=== PATIENT | male | born 1950 | race Caucasian/White ===

== ENCOUNTER → 2019-03-05 | Outpatient (CLI) | payer MEDICARE ==
[~2019-03-05] VITALS: Ht 185.4 cm; Wt 133.8 kg
[~2019-03-05] MED LIST: ASPIRIN81 M2 PO; CARAFATE 1 GM TA1 G1 PO; COLACE100 MG PO; COZAAR 25 MG TA25 M1 PO; FISH OIL 1,0001 EAC9 PO; FLOMAX0.4 MG PO; FOLIC ACID0.8 MG PO; HYDROCODON-ACE1 EAC7 PO; HYDROCODON-ACE1 EACH PO; HYDROCODONE-AP1 EAC6 PO; HYDROCODONE-APA1 TA1 PO; LASIX 20 MG TAB20 MG PO; LODINE XL500 MG PO; LOPRESSOR50 PO; LYRICA 50 MG50 MG PO; MIRALAX17 GM PO; MULTI-VITAMIN1 EAC5 PO; NEURONTIN 300300 M1 PO; NEURONTIN600 MG PO; NITROSTAT0.6 MG SL; POTASSIUM20 PO; SIMVASTATIN40 MG PO; SYMBICORT160 MCG/4. INH; VITAMIN C125 MG PO; gabapentin PO
[2019-03-05 12:51] VITALS: BP 133/96
--- NOTE | 2019-03-05 13:15 | NUR ---
Pain Clinic Assessment: 1. History of Osteoarthritis: Left Lower Extremity Left Upper Extremity Right Lower Extremity Right Upper Extremity History of Rheumatoid Arthritis: Not Applicable 2. Height: 6 ft. 1 in. 185.4 cm. Weight: 295.0 lb. oz. 133.812 kg. Patient's BMI: 38.9 3. Vital Signs: BP: 133/96 Pulse: 89 Resp: 16 Temp: 02 Sat: 95 ECG Mon: 4. Pain Intensity: 10 5. Fall Risk: Dizziness: N Needs help standing or walking: Y Fallen in the last 3 months: N Fall risk comments: 6. Patient on Blood Thinner: None 7. History of Hypertension: Y 8. Opioid Therapy greater than 6 weeks: N Opiate Contract Signed: 9. Risk Assessment Tool Provided: 10. Functional Assessment Tool: 11. Recreational Drug Use: Never Drug Type: Tobacco Use: Never Smoker Tobacco Type: Amount or Packs/day: How Many Years: Alcohol Use: Yes Frequency: Weekly Quant: 1
--- NOTE | 2019-03-12 08:38 | HPC ---
[facility] [place] [address] [address] [place] [address] PAIN MANAGEMENT CONSULTATION Name: HARRY MARIA Katalina Room #: REG SALMAGavino Ball#: [id number] Admission: 03/05/19 Attend Phys: Sergio Syed MD Discharge: Date of : 50 Report #: [id number] THIS REPORT FOR: //name// CC: Lorenzo Syed DATE OF SERVICE: 03/05/2019 Followup visit for declining relief from previously successful spinal cord stimulation system. Last time I saw the patient was in my pain clinic on 05/31/2014. In the course of the last 5 years, he has stayed out of the pain clinic, thanks to his excellent response to spinal cord stimulation. He has a paddle lead placed by Dr. Cristóbal rTevizo. Original lead placement was noted with the tip of the lead resting in the area overlying T7-T8. The lead has since moved somewhat and this has created some kinking of the lead itself, at least the wires leading from it. He now has increased impedance at all the 3 of his leads and was unable to capture any pain relief with the device today. Jeannine Alonzo was here today to try and help recapture stimulation. We were unable to do so. He was taken to the fluoroscopic suite for an assessment of the lead placement. Pictures taken in the clinic were then saved for Dr. Mckenna. We discussed returning to Dr. Trevizo; however, Dr. Trevizo is now in [place], another 40 minutes from our clinic. The patient already drives in from [place], [place], an extensive distance. I have recommended Dr. Mckenna to follow up. PQRS REVIEW: 1. He has a history of diffuse osteoarthritis involving multiple joints of the upper and lower extremities, including shoulders, elbows, hands, hips and knees. 2. His BMI is increased at 38.9. The effects of weight on chronic pain were reviewed. 3. Blood pressure 133/96, heart rate 89, respirations 16, O2 sat 95. Follow up with primary suggested due to elevated diastolic hypertension. 4. Pain intensity is 10/10. 5. He is not a fall risk, but he does need some help walking and standing. 6. He is on no blood thinners. 7. History of hypertension, under treatment. Again, he will refer back to primary. 8. No opioid therapy. At this time, he has not completed an ORT and his functional assessment score is reviewed at 42/70. 9. He denies use of tobacco and alcohol. PHYSICAL EXAMINATION: VITAL SIGNS: As noted. He is an outgoing pleasant 69-year-old. He moves [facility] [address] [place] [address] PAIN MANAGEMENT CONSULTATION Name: HARRY MARIA Katalina Room #: REG MARIE Ball#: [id number] Admission: 03/05/19 Attend Phys: Sergio Syed MD Discharge: Date of : 50 Report #: [id number] independently from sitting to standing position, walks with a cane. He is slightly unstable on his feet and his gait is antalgic. CHEST: Clear. CARDIAC: Rhythm is regular. ABDOMEN: Soft. MUSCULOSKELETAL: Examination of the spine reveals a nice scar without redness, inflammation, or irritation from placement of his paddle lead by laminectomy. The battery is overlying the right iliac crest. It is nontender. Straight leg raising is moderately positive into the right leg. IMPRESSION: 1. Chronic low back pain with radiculopathy. 2. Failure of spinal cord stimulation therapy, which had previously worked exceptionally well. 3. Obesity. 4. History of atrial fibrillation, status post ablation. PLAN: Dr. Mckenna and his team were kind enough to see him in the clinic today. We referred him directly from our clinic to Dr. Mckenna to schedule possible revision of his stimulator. <ELECTRONICALLY SIGNED> By: Sergio Syed MD 03/12/19 0838 [id number] Sergio Syed MD /nt
== END ==
LOC: PAIN 06:46
DX: Z46.2 Encounter for fitting and adjustment of other devices related to nervous system and special senses (principal); M54.16 Radiculopathy, lumbar region; G89.29 Other chronic pain; E66.9 Obesity, unspecified; I48.91 Unspecified atrial fibrillation; Z96.9 Presence of functional implant, unspecified

== ENCOUNTER → 2019-08-17 | Outpatient (CLI) | payer MEDICARE ==
[~2019-08-17] VITALS: Ht 185.4 cm; Wt 141.1 kg
[~2019-08-17] MED LIST changes: +VENTOLIN HFA 1818 GM INH
[2019-08-17 10:03] VITALS: BP 157/87
--- NOTE | 2019-08-17 10:13 | NUR ---
Pain Clinic Assessment: 1. History of Osteoarthritis: Left Lower Extremity Left Upper Extremity Right Lower Extremity Right Upper Extremity History of Rheumatoid Arthritis: Not Applicable 2. Height: 6 ft. 1 in. 185.4 cm. Weight: 311.0 lb. oz. 141.069 kg. Patient's BMI: 41.0 3. Vital Signs: BP: 157/87 Pulse: 66 Resp: 20 Temp: 02 Sat: 96 ECG Mon: 4. Pain Intensity: 7 5. Fall Risk: Dizziness: N Needs help standing or walking: N Fallen in the last 3 months: N Fall risk comments: 6. Patient on Blood Thinner: None 7. History of Hypertension: Y 8. Opioid Therapy greater than 6 weeks: N Opiate Contract Signed: 9. Risk Assessment Tool Provided: LOW-0 10. Functional Assessment Tool: 11. Recreational Drug Use: Never Drug Type: Tobacco Use: Never Smoker Tobacco Type: Amount or Packs/day: How Many Years: Alcohol Use: Yes Frequency: Special Occasions Quant: 1
--- NOTE | 2019-08-20 14:31 | HPC ---
[facility] [place] [address] PAIN MANAGEMENT CONSULTATION Name: HARRY MARIA Katalina Room #: REG MARIE PeraltaKellyJoseKelly#: [id number] Admission: 08/17/19 Attend Phys: Sergio Syed MD Discharge: Date of : 50 Report #: [id number] THIS REPORT FOR: cc: Nina Bond John D. DO Morgan, Richard L. MD ~ THIS REPORT FOR: //name// CC: NINA Syed DATE OF SERVICE: 08/17/2019 Followup visit to reassess reprogram spinal cord stimulator. The patient has done well since placement of his spinal cord stimulator several years ago. He is now having more pain in his right leg and his right knee. We felt that he might be able to use his stimulator to provide some relief and we were glad to facilitate a visit with [employer] today go through that process. He scores his pain as 7/10, shooting pain down the right leg. He did get cortisone injection in his knee in [facility] and thought that that may have been slightly helpful. MEDICATIONS: Etodolac 500 mg twice daily for many years, simvastatin, metoprolol, aspirin, docusate sodium, sucralfate, Lasix, potassium, losartan, Symbicort, tamsulosin. ALLERGIES: None. PHYSICAL EXAMINATION: GENERAL: He is a very pleasant 69-year-old gentleman. Moves independently from sitting to standing position. His gait is mildly antalgic. CHEST: Clear. CARDIAC: Rhythm is regular. MUSCULOSKELETAL: Examination of the spine reveals scar from previous surgeries and placement of device. There is some tenderness there. He has minimal pain with forward flexion and extension. Straight leg raising is negative. IMPRESSION: 1. Chronic low back pain with radiculopathy. 2. Osteoarthritis, right knee. 3. History of atrial fibrillation. PLAN: Reprogramming session was performed for his stimulator. I should note [facility] [address] [place] [address] PAIN MANAGEMENT CONSULTATION Name: HARRY MARIA Katalina Room #: REGENCY MERIDIAN#: [id number] Admission: 08/17/19 Attend Phys: Sergio Syed MD Discharge: Date of : 50 Report #: [id number] that this is a new device. Dr. Mckenna revised his older device placed in 2013 during surgery performed in April. This is his first reprogramming session since the new device was placed. He feels that there is better coverage as a result of his visit today. We will see him back if pain continues. He may be a candidate for lumbar epidural injection. <ELECTRONICALLY SIGNED> By: Sergio Syed MD 08/20/19 1431 [id number] 32 Sergio Syed MD /nt
== END ==
LOC: PAIN 06:38
DX: M54.5 Low back pain (principal); M17.11 Unilateral primary osteoarthritis, right knee; I48.91 Unspecified atrial fibrillation